=== PATIENT | male | born 1950 | race Caucasian/White ===

== ENCOUNTER 2018-12-01 12:09 | Observation (INO) | payer MEDICARE, OTHER ==
--- NOTE | 2018-12-01 12:30 | ED ---
General Adult HPI - General Chief complaint: Chest Pain Stated complaint: Chest Pain Time Seen by Provider: 12/01/18 12:19 Source: patient Mode of arrival: wheelchair Limitations: no limitations - History of Present Illness Initial comments: Patient is a pleasant 68-year-old male presenting to the emergency Department with complaints of chest discomfort. Onset of symptoms was prior to arrival. Patient did not feel well and had upset stomach and nausea. Following this patient felt fatigued in his extremities with some paresthesias. Patient felt s omewhat weak in general without any isolated area of weakness. No confusion. No speech problems or visual changes. Patient then had some chest discomfort that was described as an ache. Discomfort lasted just for a few minutes and has resolved. No associated dyspnea or diaphoresis. No history of similar symptoms previously. - Related Data Home Medications Medication Instructions Recorded Confirmed Aspirin 81 mg PO HS 02/07/14 12/01/18 Omeprazole [PriLOSEC] 20 mg PO HS 02/07/14 12/01/18 Finasteride [Proscar] 5 mg PO HS 12/22/15 12/01/18 Levothyroxine Sodium [Synthroid] 100 mcg PO HS 12/22/15 12/01/18 Montelukast [Singulair] 10 mg PO HS 12/22/15 12/01/18 amLODIPine [Norvasc] 5 mg PO HS 12/22/15 12/01/18 Atorvastatin [Lipitor] 20 mg PO HS 12/28/15 12/01/18 Loratadine 10 mg PO HS 08/10/16 12/01/18 Acetaminophen/Diphenhydramine 1 tab PO HS 12/01/18 12/01/18 [Tylenol PM 500-25mg] Celecoxib [CeleBREX] 200 mg PO DAILY 12/01/18 12/01/18 Fish Oil/Dha/Epa [Fish Oil 1,200 1 cap PO DAILY 12/01/18 12/01/18 mg Fish Oil] Magnesium Oxide [Mag-Ox] 400 mg PO DAILY 12/01/18 12/01/18 Polyethylene Glycol 3350 [Miralax] 17 gm PO DAILY PRN 12/01/18 12/01/18 Vitamin B Complex 1 cap PO DAILY 12/01/18 12/01/18 Wheat Dextrin [Benefiber] 1 pack PO BID 12/01/18 12/01/18 methylPREDNISolone [Medrol Dose See Taper PO DIRECTED 12/01/18 12/01/18 Pack] Allergies Allergy/AdvReac Type Severity Reaction Status Date / Time No Known Allergies Allergy Verified 12/01/18 12:38 Review of Systems ROS Statement: Those systems with pertinent positive or pertinent negative responses have been documented in the HPI. ROS Other: All systems not noted in ROS Statement are negative. Constitutional: Denies: fever Eyes: Denies: eye pain ENT: Denies: ear pain Respiratory: Denies: cough Cardiovascular: Reports: as per HPI, chest pain Endocrine: Denies: fatigue Gastrointestinal: Reports: nausea Genitourinary: Denies: dysuria Musculoskeletal: Denies: back pain Skin: Denies: rash Neurological: Reports: paresthesias. Denies: headache, confusion Past Medical History Past Medical History: GERD/Reflux, Hyperlipidemia, Hypertension, Prostate Disorder, Thyroid Disorder Additional Past Medical History / Comment(s): hiatal hernia, BENIGN POLYS REMOVED, SINUS AND SEASONAL ALLERGIES,ARTHRITIS,CONSTIPATION, BPH, VERTIGO, hypothyroid. History of Any Multi-Drug Resistant Organisms: None Reported Past Surgical History: Hernia Repair, Tonsillectomy Additional Past Surgical History / Comment(s): 12/28/15 Lap left incarcerated inguinal henia repair. Other surgeries: COLONOSCOPY/POLYPECTOMY-benign, circumcism, vasectomy. Past Anesthesia/Blood Transfusion Reactions: No Reported Reaction Past Psychological History: No Psychological Hx Reported Smoking Status: Never smoker Past Alcohol Use History: None Reported Past Drug Use History: None Reported - Past Family History Father Family Medical History: Myocardial Infarction ([place]) Additional Family Medical History / Comment(s): AT AGE 71 FROM [place] Mother Family Medical History: COPD Additional Family Medical History / Comment(s): EMPHYSEMA, IN HER SLEEP AT AGE 76 General Exam Limitations: no limitations General appearance: alert, in no apparent distress Head exam: Present: atraumatic, normocephalic Eye exam: Present: normal appearance, PERRL, EOMI. Absent: nystagmus ENT exam: Present: normal oropharynx Neck exam: Present: normal inspection Respiratory exam: Present: normal lung sounds bilaterally Cardiovascular Exam: Present: regular rate, normal rhythm Expanded Peripheral pulses: 2+: Radial (R), Radial (L), Posterior Tibialis (R), Posterior Tibialis (L) GI/Abdominal exam: Present: soft. Absent: distended, tenderness Extremities exam: Present: normal inspection. Absent: pedal edema, calf t enderness Neurological exam: Present: alert, oriented X3, CN II-XII intact. Absent: motor sensory deficit Expanded Neurological exam: Present: protecting the airway Patient oriented to: Present: person, place, time Speech: Present: fluid speech Cranial nerves: EOM's Intact: Normal, Facial Sensation: Normal Cerebellar function: Finger to Nose: Normal Sensory exam: Upper Extremity Light Touch: Normal, Lower Extremity Light Touch: Normal Motor strength exam: RUE: 5, LUE: 5, RLE: 5, LLE: 5 Eye Response: (4) open spontaneously Motor Response: (6) obeys commands Verbal Response: (5) oriented Psychiatric exam: Present: normal affect, normal mood Skin exam: Present: normal color Course Vital Signs 12/01/18 12/01/18 12/01/18 12:11 13:30 14:00 Temperature 98.5 F Pulse Rate 106 H 74 Respiratory 18 16 18 Rate Blood Pressure 146/94 128/93 133/98 O2 Sat by Pulse 98 95 Oximetry 12/01/18 12/01/18 14:30 15:00 Temperature Pulse Rate 82 95 Respiratory 18 17 Rate Blood Pressure 126/94 126/95 O2 Sat by Pulse 93 L 94 L Oximetry EKG Findings - EKG Comments: EKG Findings:: Normal sinus rhythm and 91. VA 164. QRS 110. QT 346. QTc 425. Left axis. Left anterior fascicular block. No acute ST change. Medical Decision Making - Medical Decision Making Patient reevaluated and resting comfortably in bed. Patient symptom-free at this point. Patient and family are updated on results and plan. Case was discussed in detail with Dr. Skinner, covering for Dr. Weaver, who will admit. - Lab Data Result diagrams: 12/01/18 12:45 12/01/18 12:45 Lab Results 12/01/18 12/01/18 12/01/18 Range/Units 12:45 12:45 12:45 WBC 7.3 (3.8-10.6) k/uL RBC 5.19 (4.30-5.90) m/uL Hgb 15.3 (13.0-17.5) gm/dL Hct 46.3 (39.0-53.0) % MCV 89.2 (80.0-100.0) fL MCH 29.4 (25.0-35.0) pg MCHC 32.9 (31.0-37.0) g/dL RDW 13.6 (11.5-15.5) % Plt Count 258 (150-450) k/uL Neutrophils % 67 % Lymphocytes % 20 % Monocytes % 9 % Eosinophils % 1 % Basophils % 0 % Neutrophils # 4.9 (1.3-7.7) k/uL Lymphocytes # 1.5 (1.0-4.8) k/uL Monocytes # 0.7 (0-1.0) k/uL Eosinophils # 0.1 (0-0.7) k/uL Basophils # 0.0 (0-0.2) k/uL PT 10.3 (9.0-12.0) sec INR 1.0 (<1.2) APTT 23.0 (22.0-30.0) sec Sodium 143 (137-145) mmol/L Potassium 4.6 (3.5-5.1) mmol/L Chloride 106 (98-107) mmol/L Carbon Dioxide 26 (22-30) mmol/L Anion Gap 11 mmol/L BUN 22 H (9-20) mg/dL Creatinine 0.92 (0.66-1.25) mg/dL Est GFR (CKD-EPI)AfAm >90 (>60 ml/min/1.73 sqM) Est GFR (CKD-EPI)NonAf 86 (>60 ml/min/1.73 sqM) Glucose 104 H (74-99) mg/dL Calcium 10.1 (8.4-10.2) mg/dL Magnesium 2.2 (1.6-2.3) mg/dL Total Bilirubin 0.6 (0.2-1.3) mg/dL AST 23 (17-59) U/L ALT 36 (21-72) U/L Alkaline Phosphatase 58 (38-126) U/L Troponin I (0.000-0.034) ng/mL Total Protein 7.5 (6.3-8.2) g/dL Albumin 4.6 (3.5-5.0) g/dL 12/01/18 Range/Units 12:45 WBC (3.8-10.6) k/uL RBC (4.30-5.90) m/uL Hgb (13.0-17.5) gm/dL Hct (39.0-53.0) % MCV (80.0-100.0) fL MCH (25.0-35.0) pg MCHC (31.0-37.0) g/dL RDW (11.5-15.5) % Plt Count (150-450) k/uL Neutrophils % % Lymphocytes % % Monocytes % % Eosinophils % % Basophils % % Neutrophils # (1.3-7.7) k/uL Lymphocytes # (1.0-4.8) k/uL Monocytes # (0-1.0) k/uL Eosinophils # (0-0.7) k/uL Basophils # (0-0.2) k/uL PT (9.0-12.0) sec INR (<1.2) APTT (22.0-30.0) sec Sodium (137-145) mmol/L Potassium (3.5-5.1) mmol/L Chloride (98-107) mmol/L Carbon Dioxide (22-30) mmol/L Anion Gap mmol/L BUN (9-20) mg/dL Creatinine (0.66-1.25) mg/dL Est GFR (CKD-EPI)AfAm (>60 ml/min/1.73 sqM) Est GFR (CKD-EPI)NonAf (>60 ml/min/1.73 sqM) Glucose (74-99) mg/dL Calcium (8.4-10.2) mg/dL Magnesium (1.6-2.3) mg/dL Total Bilirubin (0.2-1.3) mg/dL AST (17-59) U/L ALT (21-72) U/L Alkaline Phosphatase (38-126) U/L Troponin I <0.012 (0.000-0.034) ng/mL Total Protein (6.3-8.2) g/dL Albumin (3.5-5.0) g/dL - Radiology Data Radiology results: report reviewed (Computed tomography scan of the brain reveals no acute process.), image reviewed (Two-view chest x-ray shows no acute process.) Disposition Clinical Impression: Chest pain Disposition: ADMITTED IP TO THIS HOSP Is patient prescribed a controlled substance at d/c from ED?: No Referrals: Niurka Weaver DO [Primary Care Provider] - 1-2 days Decision Time: 15:06
--- NOTE | 2018-12-01 13:14 | CT ---
EXAMINATION TYPE: CT brain wo con DATE OF EXAM: 12/01/2018 COMPARISON: 08/10/2016 INDICATION: generalized weakness, elevated BP DLP: 1091.4 mGycm, Automated exposure control for dose reduction was used. CONTRAST: None CT of the brain is performed utilizing 3 mm thick sections through the posterior fossa and 3 mm thick sections through the remaining calvarium. Study is performed within 24 hours of arrival to the hosp ital. No abnormal hyperdensity is present to suggest an acute intracranial hemorrhage. No mass lesion is evident. No acute infarcts are evident. Ventricles and sulci are appropriate for the patient age. Paranasal sinuses and mastoid air cells within the [id number] are clear. IMPRESSIONS: 1. No acute intracranial process.
[2018-12-01 13:15] LABS: Prothrombin Time 10.3 sec (9.0-12.0)
--- NOTE | 2018-12-01 13:19 | XR ---
EXAMINATION TYPE: XR chest 2V DATE OF EXAM: 12/01/2018 COMPARISON: 08/10/2016 TECHNIQUE: PA and lateral views submitted. HISTORY: Chest pain FINDINGS: The lungs are clear and there is no pneumothorax, pleural effusion, or focal pneumonia. Hypertrophi c and degenerative change of the spine. Hyperinflation compatible with COPD. Biapical pleural thicken ing. No overt failure. IMPRESSION: 1. No acute process. Correlate for COPD.
[2018-12-01 13:20] LABS: ALT 36 U/L (21-72); AST 23 U/L (17-59); Albumin 4.6 g/dL (3.5-5.0); Alkaline Phosphatase 58 U/L (38-126); Anion Gap 11 mmol/L; Blood Urea Nitrogen 22 mg/dL (9-20); Calcium 10.1 mg/dL (8.4-10.2); Carbon Dioxide 26 mmol/L (22-30); Chloride 106 mmol/L (98-107); Glucose 104 mg/dL (74-99); Magnesium 2.2 mg/dL (1.6-2.3); Potassium 4.6 mmol/L (3.5-5.1); Sodium 143 mmol/L (137-145); Total Bilirubin 0.6 mg/dL (0.2-1.3); Total Protein 7.5 g/dL (6.3-8.2)
[2018-12-01 13:27] LABS: Basophils % (A) 0 %; Eosinophils # (A) 0.1 k/uL (0-0.7); Eosinophils % (A) 1 %; HCT 46.3 % (39.0-53.0); HGB 15.3 gm/dL (13.0-17.5); Lymphocytes # (A) 1.5 k/uL (1.0-4.8); Lymphocytes % (A) 20 %; MCH 29.4 pg (25.0-35.0); MCHC 32.9 g/dL (31.0-37.0); MCV 89.2 fL (80.0-100.0); Mean Platelet Volume 8.1; Monocytes # (A) 0.7 k/uL (0-1.0); Monocytes % (A) 9 %; Neutrophils # (A) 4.9 k/uL (1.3-7.7); Neutrophils % (A) 67 %; Platelet Count 258 k/uL (150-450); RBC 5.19 m/uL (4.30-5.90); RDW 13.6 % (11.5-15.5); WBC 7.3 k/uL (3.8-10.6)
[2018-12-01] MEDS ORDERED: ASPIRIN 81 MG PO STA (15:06)
[2018-12-01] MEDS ORDERED: NITROGLYCERIN SL TABS 0.4 MG TAB SUBLINGUAL PRN (15:06)
--- NOTE | 2018-12-01 15:53 | P.HPIM ---
History of Present Illness H&P Date: 12/01/18 This is a 68-year-old male patient of Dr. Weaver. Patient presented to the ER with complaints of chest pain. Patient also reports that is not feeling well and having increased fatigue. Patient also reports that his lower extremities both felt numb an overall generalized weakness. Patient denies any associated shortness breath. Patient has a known past medical history of hiatal hernia, GERD, hyperlipidemia, hypertension, prostate disorder and hypothyroidism. Patient denies any significant cardiac history for himself. Patient does report that father of heart attack. Patient denies nicotine dependence. Patient denies alcohol use. Patient also reports that he's had right shoulder and back discomfort for over a week in which she's currently on a Medrol Dosepak. EKG completed showing normal sinus rhythm, left anterior vascular block. Initial troponin negative. Head CT completed showing no acute intracranial process. Chest x-ray showing no acute process. Correlate for COPD. At this time patient is resting comfortably in bed. Patient denies any chest pain or shortness of breath. Patient numbness to lower extremities have resolved. Patient denies any neuro symptoms. Speech is clear. Patient with are symmetric. At this time serial troponins have been ordered. Cardiology services have been consulted Review of Systems Please refer to HPI otherwise unremarkable Past Medical History Past Medical History: GERD/Reflux, Hyperlipidemia, Hypertension, Prostate Disorder, Thyroid Disorder Additional Past Medical History / Comment(s): hiatal hernia, BENIGN POLYS REMOVED, SINUS AND SEASONAL ALLERGIES,ARTHRITIS,CONSTIPATION, BPH, VERTIGO, hypothyroid. History of Any Multi-Drug Resistant Organisms: None Reported Past Surgical History: Hernia Repair, Tonsillectomy Additional Past Surgical History / Comment(s): 12/28/15 Lap left incarcerated inguinal henia repair. Other surgeries: COLONOSCOPY/POLYPECTOMY-benign, circumcism, vasectomy. Past Anesthesia/Blood Transfusion Reactions: No Reported Reaction Past Psychological History: No Psychological Hx Reported Smoking Status: Never smoker Past Alcohol Use History: None Reported Past Drug Use History: None Reported - Past Family History Father Family Medical History: Myocardial Infarction ([place]) Additional Family Medical History / Comment(s): AT AGE 71 FROM [place] Mother Family Medical History: COPD Additional Family Medical History / Comment(s): EMPHYSEMA, IN HER SLEEP AT AGE 76 Medications and Allergies Home Medications Medication Instructions Recorded Confirmed Type Aspirin 81 mg PO HS 02/07/14 12/01/18 History Omeprazole [PriLOSEC] 20 mg PO HS 02/07/14 12/01/18 History Finasteride [Proscar] 5 mg PO HS 12/22/15 12/01/18 History Levothyroxine Sodium [Synthroid] 100 mcg PO HS 12/22/15 12/01/18 History Montelukast [Singulair] 10 mg PO HS 12/22/15 12/01/18 History amLODIPine [Norvasc] 5 mg PO HS 12/22/15 12/01/18 History Atorvastatin [Lipitor] 20 mg PO HS 12/28/15 12/01/18 History Loratadine 10 mg PO HS 08/10/16 12/01/18 History Acetaminophen/Diphenhydramine 1 tab PO HS 12/01/18 12/01/18 History [Tylenol PM 500-25mg] Celecoxib [CeleBREX] 200 mg PO DAILY 12/01/18 12/01/18 History Fish Oil/Dha/Epa [Fish Oil 1,200 1 cap PO DAILY 12/01/18 12/01/18 History mg Fish Oil] Magnesium Oxide [Mag-Ox] 400 mg PO DAILY 12/01/18 12/01/18 History Polyethylene Glycol 3350 [Miralax] 17 gm PO DAILY PRN 12/01/18 12/01/18 History Vitamin B Complex 1 cap PO DAILY 12/01/18 12/01/18 History Wheat Dextrin [Benefiber] 1 pack PO BID 12/01/18 12/01/18 History methylPREDNISolone [Medrol Dose See Taper PO DIRECTED 12/01/18 12/01/18 History Pack] Allergies Allergy/AdvReac Type Severity Reaction Status Date / Time No Known Allergies Allergy Verified 12/01/18 12:38 Physical Exam Vitals: Vital Signs Temp Pulse Resp BP Pulse Ox 12/01/18 15:00 95 17 126/95 94 L 12/01/18 14:30 82 18 126/94 93 L 12/01/18 14:00 18 133/98 12/01/18 13:30 74 16 128/93 95 12/01/18 12:11 98.5 F 106 H 18 146/94 98 Intake and Output 12/01/18 12/01/18 12/01/18 06:59 14:59 22:59 Other: Weight 95.254 kg Head normocephalic Neck supple Lungs clear to auscultation bilaterally no wheezing or crackles Heart regular rate and rhythm S1-S2, no rub or gallop Abdomen is soft nontender nondistended positive bowel sounds no hepatosplenomegaly Extremities no edema Neuro alert and orientated to 3 Results CBC & Chem 7: 12/01/18 12:45 12/01/18 12:45 Labs: Abnormal Lab Results - Last 24 Hours (Table) 12/01/18 Range/Units 12:45 BUN 22 H (9-20) mg/dL Glucose 104 H (74-99) mg/dL Assessment and Plan Assessment: 1. Chest pain with lower extremity weakness. Initial troponin negative. Head CT completed showing no acute intracranial process. Chest x-ray completed showing no acute process. Correlate for COPD. EKG completed showing normal sinus rhythm. Left anterior vascular block. Cardiology services have been consulted. Seriel Troponins ordered 2. History of GERD 3. History of hyperlipidemia 4. Essential hypertension 5. Prostate disorder 6. Hypothyroidism 7. Recent shoulder injury. Patient reports that he's was on Medrol Dosepak at home for this pain her PCP DVT prophylaxis Lovenox. GI prophylaxis Protonix Time with Patient: Greater than 30 (Greater than 60% of the total time spent in counseling and coordination of care. I performed an examination of the patient and discussed their management with the Nurse Practitioner. I have reviewed the Nurse Practitioner's notes and agree with the documented findings and plan of care)
[2018-12-01] MEDS: NITROGLYCERIN OINT 1 INCH/GM PACKET TOPICAL SCH (19:59)
[2018-12-01] MEDS ORDERED: ACETAMINOPHEN TAB 500 MG TAB PO SCH (21:00)
[2018-12-01] MEDS ORDERED: diphenhydrAMINE 25 MG CAP PO SCH (21:00)
[2018-12-01] MEDS ORDERED: LEVOTHYROXINE 100 MCG TAB PO SCH (21:00)
[2018-12-01] MEDS ORDERED: MONTELUKAST 10 MG TAB PO SCH (21:00)
[2018-12-01] MEDS ORDERED: ATORVASTATIN 20 MG TAB PO SCH (21:00)
[2018-12-01] MEDS ORDERED: PANTOPRAZOLE 40 MG TABLET PO SCH (21:00)
[2018-12-01] MEDS ORDERED: amLODIPine 5 MG TAB PO SCH (21:00)
[2018-12-01] MEDS ORDERED: LORATADINE 10 MG TAB PO SCH (21:00)
[2018-12-01] MEDS ORDERED: FINASTERIDE 5 MG TAB PO SCH (21:00)
[2018-12-01] MEDS ORDERED: NON-FORMULARY DRUG (Acetaminophen/Diphenhydramine [Tylenol Pm 500-25mg] 1 TAB) PO SCH (21:00)
[2018-12-02] MEDS: NITROGLYCERIN OINT 1 INCH/GM PACKET TOPICAL SCH ×3 (02:01→12:37)
[2018-12-02] MEDS ORDERED: PANTOPRAZOLE 40 MG TABLET PO SCH (07:30)
[2018-12-02 08:06] LABS: Basophils # (A) 0.1 k/uL (0-0.2); Basophils % (A) 1 %; Eosinophils # (A) 0.2 k/uL (0-0.7); Eosinophils % (A) 2 %; HCT 47.3 % (39.0-53.0); HGB 15.7 gm/dL (13.0-17.5); Lymphocytes # (A) 2.7 k/uL (1.0-4.8); Lymphocytes % (A) 39 %; MCH 29.8 pg (25.0-35.0); MCHC 33.2 g/dL (31.0-37.0); MCV 89.7 fL (80.0-100.0); Monocytes # (A) 0.6 k/uL (0-1.0); Monocytes % (A) 9 %; Neutrophils # (A) 3.2 k/uL (1.3-7.7); Neutrophils % (A) 46 %; Platelet Count 244 k/uL (150-450); RBC 5.28 m/uL (4.30-5.90); RDW 12.8 % (11.5-15.5); WBC 6.9 k/uL (3.8-10.6)
[2018-12-02 08:31] LABS: ALT 45 U/L (21-72); AST 24 U/L (17-59); Albumin 4.4 g/dL (3.5-5.0); Alkaline Phosphatase 58 U/L (38-126); Anion Gap 9 mmol/L; Blood Urea Nitrogen 17 mg/dL (9-20); Calcium 9.4 mg/dL (8.4-10.2); Carbon Dioxide 28 mmol/L (22-30); Chloride 107 mmol/L (98-107); Cholesterol 120 mg/dL (<200); Glucose 95 mg/dL (74-99); HDL Cholesterol 43 mg/dL (40-60); LDL Cholesterol,Calculated 51 mg/dL (0-99); Potassium 3.9 mmol/L (3.5-5.1); Sodium 144 mmol/L (137-145); Total Bilirubin 0.7 mg/dL (0.2-1.3); Triglycerides 130 mg/dL (<150)
[2018-12-02] MEDS ORDERED: ASPIRIN 325 MG TAB PO SCH (09:00)
[2018-12-02] MEDS ORDERED: ENOXAPARIN 40 MG/0.4 ML SYRINGE SQ SCH (09:00)
[2018-12-02 09:01] VITALS: RESP 18
--- NOTE | 2018-12-02 11:08 | P.CRDCN ---
History of Present Illness History of present illness: This is a pleasant 68-year-old male past medical history significant for dyslipidemia, hypertension, benign prostatic hypertrophy, gastroesophageal reflux disease and hypothyroidism. He denies history of coronary artery disease or diabetes mellitus. He follows with Dr. Gardiner as an outpatient. We have been asked to see him in consultation secondary to chest discomfort. He states yesterday while sitting down drinking some paperwork at his table he started feeling acutely lightheaded and weak. He stood up to walk around and see if his symptoms would subside however he felt very weak and achy in both of his legs and arms. He denies having any symptoms of chest discomfort, shortness of breath, palpitations, nausea, vomiting or diaphoresis. Upon arrival to the emergency department his EKG was obtained and revealed sinus mechanism with left anterior fascicular block. He states his symptoms ultimately subsided on their own and he feels back to baseline this morning. No further symptoms of lightheaded or weakness. He recently underwent stress testing with his primary care physician in March 2018. A Persantine stress test was negative for reversible cardiac ischemia. Chest x-ray is negative for an acute cardiopulmonary process. Laboratory data reviewed, WBC 6.9, hemoglobin 15.7, platelets 244, sodium 144, potassium 3.9, creatinine 0.96, magnesium 2.2, cardiac enzymes negative 3, LDL 51 and HDL 43. Current cardiac medications include aspirin 81 mg daily, atorvastatin 20 mg daily, amlodipine 5 mg daily. At the time of my exam: CONSTITUTIONAL: Denies fever. Denies chills. EYES: Denies blurred vision. Denies vision changes. Denies eye pain. EARS, NOSE, MOUTH & THROAT: Denies headache. Denies sore throat. Denies ear pain. CARDIOVASCULAR: Denies chest pain. Denies shortness of breath. Denies orthopnea. Denies PND. Denies palpitations. RESPIRATORY: Denies cough. GASTROINTESTINAL: Denies abdominal pain. Denies diarrhea. Denies constipation. Denies nausea. Denies vomiting. MUSCULOSKELETAL: Denies myalgias. INTEGUMENTARY: Denies pruitis. Denies rash. NEUROLOGIC: Denies numbness. Denies tingling. Denies weakness. PSYCHIATRIC: Denies anxiety. Denies depression. ENDOCRINE: Denies fatigue. Denies weight change. Denies polydipsia. Denies polyurina. GENITOURINARY: Denies burning, hematuria or urgency with micturation. HEMATOLOGIC: Denies history of anemia. Denies bleeding. Blood pressure 142/84 heart rate 88 afebrile maintaining oxygen saturation on room air GENERAL: This is a 68-year-old male in no apparent distress at the time of my examination. HEENT: Head is atraumatic, normocephalic. Pupils are equal, round. Sclerae anicteric. Conjunctivae are clear. Mucous membranes of the mouth are moist. Neck is supple. There is no jugular venous distention. No carotid bruit is heard. LUNGS: Clear to auscultation no wheezes, rales or rhonchi. No chest wall tenderness is noted on palpation or with deep breathing. HEART: Regular rate and rhythm without murmurs, rubs or gallops. S1 and S2 heard. ABDOMEN: Soft, nontender. Bowel sounds are heard. No organomegaly noted. EXTREMITIES: No evidence of peripheral edema and no calf tenderness noted. VASCULAR: Radial and dorsalis pedis pulses palpated, no evidence of clubbing. NEUROLOGIC: Patient is awake, alert and oriented x3. ASSESSMENT Generalized weakness associated with lightheaded feeling. An acute coronary event has been ruled out with no EKG evidence of ischemia and negative cardiac enzymes. Negative stress test performed in March 2018. Hypertension Dyslipidemia Gastroesophageal reflux disease PLAN An acute coronary event has been ruled out with no EKG evidence of acute ischemia and negative cardiac enzymes. Recent stress test performed in March 2018 has been requested from his primary care office and reviewed. No evidence of reversible ischemia at that time. Obtain 2-D echocardiogram and Doppler study to assess cardiac structure and function. Increase activity and ambulation in the cardona and assess for further symptoms. If he remains asymptomatic he is stable from a cardiac perspective. Follow-up with Dr. Gardiner upon discharge. Thank you kindly for this consultation. Nurse Practitioner note has been reviewed, I agree with a documented findings and plan of care. Patient was seen and examined. Past Medical History Past Medical History: GERD/Reflux, Hyperlipidemia, Hypertension, Prostate Disorder, Thyroid Disorder Additional Past Medical History / Comment(s): hernia, BENIGN POLYS REMOVED, SINUS AND SEASONAL ALLERGIES,ARTHRITIS,CONSTIPATION, BPH, VERTIGO, hypothyroid. History of Any Multi-Drug Resistant Organisms: None Reported Past Surgical History: Hernia Repair, Tonsillectomy Additional Past Surgical History / Comment(s): 12/28/15 Lap left incarcerated inguinal henia repair. Other surgeries: COLONOSCOPY/POLYPECTOMY-benign, circumcism, vasectomy. Past Anesthesia/Blood Transfusion Reactions: No Reported Reaction Past Psychological History: No Psychological Hx Reported Additional Psychological History / Comment(s): PT LIVES AT HOME WITH HIS ,IS INDEPENDANT. 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 Smoking Status: Never smoker Past Alcohol Use History: None Reported Past Drug Use History: None Reported - Past Family History Father Family Medical History: Myocardial Infarction ([place]) Additional Family Medical History / Comment(s): AT AGE 71 FROM [place] Mother Family Medical History: COPD Additional Family Medical History / Comment(s): EMPHYSEMA, IN HER SLEEP AT AGE 76 Medications and Allergies Home Medications Medication Instructions Recorded Confirmed Type Aspirin 81 mg PO HS 02/07/14 12/01/18 History Omeprazole [PriLOSEC] 20 mg PO HS 02/07/14 12/01/18 History Finasteride [Proscar] 5 mg PO HS 12/22/15 12/01/18 History Levothyroxine Sodium [Synthroid] 100 mcg PO HS 12/22/15 12/01/18 History Montelukast [Singulair] 10 mg PO HS 12/22/15 12/01/18 History amLODIPine [Norvasc] 5 mg PO HS 12/22/15 12/01/18 History Atorvastatin [Lipitor] 20 mg PO HS 12/28/15 12/01/18 History Loratadine 10 mg PO HS 08/10/16 12/01/18 History Acetaminophen/Diphenhydramine 1 tab PO HS 12/01/18 12/01/18 History [Tylenol PM 500-25mg] Celecoxib [CeleBREX] 200 mg PO DAILY 12/01/18 12/01/18 History Fish Oil/Dha/Epa [Fish Oil 1,200 1 cap PO DAILY 12/01/18 12/01/18 History mg Fish Oil] Magnesium Oxide [Mag-Ox] 400 mg PO DAILY 12/01/18 12/01/18 History Polyethylene Glycol 3350 [Miralax] 17 gm PO DAILY PRN 12/01/18 12/01/18 History Vitamin B Complex 1 cap PO DAILY 12/01/18 12/01/18 History Wheat Dextrin [Benefiber] 1 pack PO BID 12/01/18 12/01/18 History methylPREDNISolone [Medrol Dose See Taper PO DIRECTED 12/01/18 12/01/18 History Pack] Allergies Allergy/AdvReac Type Severity Reaction Status Date / Time No Known Allergies Allergy Verified 12/01/18 12:38 Physical Exam Vitals: Vital Signs Temp Pulse Pulse Resp BP BP Pulse Ox 12/02/18 04:00 98.6 F 74 16 133/76 96 12/02/18 03:26 16 12/02/18 00:00 16 12/01/18 20:00 98.6 F 73 16 149/80 95 12/01/18 16:25 98.7 F 84 18 160/93 97 12/01/18 15:30 75 16 134/93 93 L 12/01/18 15:00 95 17 126/95 94 L 12/01/18 14:30 82 18 126/94 93 L 12/01/18 14:00 18 133/98 12/01/18 13:30 74 16 128/93 95 12/01/18 12:11 98.5 F 106 H 18 146/94 98 Intake and Output 12/01/18 12/02/18 12/02/18 22:59 06:59 14:59 Intake Total 240 Balance 240 Intake: Oral 240 Other: # Voids 1 Results 12/02/18 07:46 12/02/18 07:46 Cardiac Enzymes 12/01/18 12/01/18 12/01/18 Range/Units 12:45 12:45 18:34 AST 23 (17-59) U/L Troponin I <0.012 <0.012 (0.000-0.034) ng/mL 12/02/18 12/02/18 Range/Units 00:50 07:46 AST 24 (17-59) U/L Troponin I <0.012 (0.000-0.034) ng/mL Coagulation 12/01/18 Range/Units 12:45 PT 10.3 (9.0-12.0) sec APTT 23.0 (22.0-30.0) sec Lipids 12/02/18 Range/Units 07:46 Triglycerides 130 (<150) mg/dL Cholesterol 120 (<200) mg/dL HDL Cholesterol 43 (40-60) mg/dL CBC 12/01/18 12/02/18 Range/Units 12:45 07:46 WBC 7.3 6.9 (3.8-10.6) k/uL RBC 5.19 5.28 (4.30-5.90) m/uL Hgb 15.3 15.7 (13.0-17.5) gm/dL Hct 46.3 47.3 (39.0-53.0) % Plt Count 258 244 (150-450) k/uL Comprehensive Metabolic Panel 12/01/18 12/02/18 Range/Units 12:45 07:46 Sodium 143 144 (137-145) mmol/L Potassium 4.6 3.9 (3.5-5.1) mmol/L Chloride 106 107 (98-107) mmol/L Carbon Dioxide 26 28 (22-30) mmol/L BUN 22 H 17 (9-20) mg/dL Creatinine 0.92 0.96 (0.66-1.25) mg/dL Glucose 104 H 95 (74-99) mg/dL Calcium 10.1 9.4 (8.4-10.2) mg/dL AST 23 24 (17-59) U/L ALT 36 45 (21-72) U/L Alkaline Phosphatase 58 58 (38-126) U/L Total Protein 7.5 7.0 (6.3-8.2) g/dL Albumin 4.6 4.4 (3.5-5.0) g/dL Current Medications Generic Name Dose Route Start Last Admin Trade Name Freq PRN Reason Stop Dose Admin Acetaminophen 500 mg 12/01/18 21:00 12/01/18 21:09 Tylenol Tab PO 500 mg HS REGINA Administration Amlodipine Besylate 5 mg 12/01/18 21:00 12/01/18 21:09 Norvasc PO 5 mg HS REGINA Administration Aspirin 325 mg 12/02/18 09:00 Aspirin PO DAILY [facility] Atorvastatin Calcium 20 mg 12/01/18 21:00 12/01/18 21:09 Lipitor PO 20 mg HS REGINA Administration Diphenhydramine HCl 25 mg 12/01/18 21:00 12/01/18 21:09 Benadryl PO 25 mg HS REGINA Administration Enoxaparin Sodium 40 mg 12/02/18 09:00 Lovenox SQ DAILY REGINA Finasteride 5 mg 12/01/18 21:00 12/01/18 21:12 Proscar PO 5 mg HS REGINA Administration Levothyroxine Sodium 100 mcg 12/01/18 21:00 12/01/18 21:09 Synthroid PO 100 mcg HS REGINA Administration Loratadine 10 mg 12/01/18 21:00 12/01/18 21:09 Claritin PO 10 mg HS REGINA Administration Magnesium Oxide 400 mg 12/02/18 12:00 Mag-Ox PO 1200 REGINA Montelukast Sodium 10 mg 12/01/18 21:00 12/01/18 21:12 Singulair PO 10 mg HS REGINA Administration Nitroglycerin 1 inch 12/01/18 18:00 12/02/18 05:53 Nitro-Bid Oint TOPICAL Not Given Q6HR [facility] Nitroglycerin 0.4 mg 12/01/18 15:06 Nitrostat SUBLINGUAL Q5M PRN Chest Pain Pantoprazole Sodium 40 mg 12/01/18 21:00 12/01/18 21:09 Protonix PO 40 mg HS REGINA Administration Sodium Chloride 10 ml 12/01/18 21:00 12/01/18 21:15 Saline Flush IV 10 ml BID REGINA Administration Intake and Output 12/01/18 12/02/18 12/02/18 22:59 06:59 14:59 Intake Total 240 Balance 240 Intake: Oral 240 Other: # Voids 1 12/02/18 07:46 12/02/18 07:46
--- NOTE | 2018-12-02 11:49 | ECHOF ---
Referral Reason:dizziness MEASUREMENTS -------- HEIGHT: 180.3 cm WEIGHT: 95.3 kg BP: 142/84 RVIDd: 3.6 cm (< 3.3) IVSd: 1.6 cm (0.6 - 1.1) LVIDd: 3.8 cm (3.9 - 5.3) LVPWd: 1.3 cm (0.6 - 1.1) IVSs: 2.1 cm LVIDs: 3.0 cm LVPWs: 1.9 cm LA Diam: 3.1 cm (2.7 - 3.8) LAESV Index (A-L): 13.93 ml/m Ao Diam: 3.7 cm (2.0 - 3.7) AV Cusp: 2.3 cm (1.5 - 2.6) MV EXCURSION: 13.644 mm (> 18.000) MV EF SLOPE: 41 mm/s (70 - 150) EPSS: 1.0 cm MV E Francisco: 0.52 m/s MV DecT: 224 ms MV A Francisco: 0.91 m/s MV E/A Ratio: 0.57 RAP: 5.00 mmHg RVSP: 23.73 mmHg FINDINGS -------- Sinus rhythm. This was a technically adequate study. The left ventricular size is normal. There is moderate concentric left ventricular hypertrophy. O verall left ventricular systolic function is normal with, an EF between 60 - 65 %. The right ventricle is mildly enlarged. Normal LA size by volume 22+/-6 ml/m2. The right atrium is normal in size. Aortic valve is trileaflet and is mildly thickened. The mitral valve leaflets are mildly thickened. Mild mitral annular calcification present. There is trace mitral regurgitation. Mild tricuspid regurgitation present. Right ventricular systolic pressure is normal at < 35 mmHg. Trace/mild (physiologic) pulmonic regurgitation. The aortic root size is normal. Normal inferior vena cava with normal inspiratory collapse consistent with estimated right atrial pre ssure of 5 mmHg. There is no pericardial effusion. CONCLUSIONS -------- 1. Sinus rhythm. 2. This was a technically adequate study. 3. The left ventricular size is normal. 4. There is moderate concentric left ventricular hypertrophy. 5. Overall left ventricular systolic function is normal with, an EF between 60 - 65 %. 6. The right ventricle is mildly enlarged. 7. Normal LA size by volume 22+/-6 ml/m2. 8. The right atrium is normal in size. 9. Aortic valve is trileaflet and is mildly thickened. 10. The mitral valve leaflets are mildly thickened. 11. Mild mitral annular calcification present. 12. There is trace mitral regurgitation. 13. Mild tricuspid regurgitation present. 14. Right ventricular systolic pressure is normal at < 35 mmHg. 15. Trace/mild (physiologic) pulmonic regurgitation. 16. The aortic root size is normal. 17. Normal inferior vena cava with normal inspiratory collapse consistent with estimated right atrial pressure of 5 mmHg. 18. There is no pericardial effusion. RUG DYER: Ting Kohli RDCS
[2018-12-02] MEDS ORDERED: MAGNESIUM OXIDE 400 MG TAB PO SCH (12:00)
[2018-12-02 12:47] VITALS: BP 119/83; PULSE 118; TEMP 98.7
--- NOTE | 2018-12-02 14:18 | P.DS ---
Providers Date of admission: 12/01/18 15:07 Expected date of discharge: 12/02/18 Attending physician: Rafael Skinner Consults: 12/01/18 15:07 Consult Physician Urgent Consulting Provider: Sidra Oneil Consult Reason/Comments: cp Do you want consulting provider notified?: Yes Primary care physician: Niurka Weaver Hospital Course: Discharge diagnosis 1. Chest pain with lower extremity weakness. Initial troponin negative. Head CT completed showing no acute intracranial process. Chest x-ray completed showing no acute process. Correlate for COPD. EKG completed showing normal sinus rhythm. Left anterior vascular block. Troponins negative 3. Patient did have stress test completed. Discussed case with cardiology GENERATION TECHNOLOGIST. Stress test negative. Patient has been cleared for discharge from cardiology standpoint. Recommend holding Lipitor upon discharge due to increased muscle aches. Patient follow-up with PCP for further management. 2. History of GERD 3. History of hyperlipidemia 4. Essential hypertension 5. Prostate disorder 6. Hypothyroidism 7. Recent shoulder injury. Patient reports that he's was on Medrol Dosepak at home for this pain his PCP Hospital course This is a 68-year-old male patient of Dr. Weaver. Patient presented to the ER with complaints of chest pain. Patient also reports that is not feeling well and having increased fatigue. Patient also reports that his lower extremities both felt numb an overall generalized weakness. Patient denies any associated shortness breath. Patient has a known past medical history of hiatal hernia, GERD, hyperlipidemia, hypertension, prostate disorder and hypothyroidism. Patient denies any significant cardiac history for himself. Patient does report that father of heart attack. Patient denies nicotine dependence. Patient denies alcohol use. Patient also reports that he's had right shoulder and back discomfort for over a week in which she's currently on a Medrol Dosepak. EKG completed showing normal sinus rhythm, left anterior vascular block. Initial troponin negative. Head CT completed showing no acute intracranial process. Chest x-ray showing no acute process. Correlate for COPD. At this time patient is resting comfortably in bed. Patient denies any chest pain or shortness of breath. Patient numbness to lower extremities have resolved. Patient denies any neuro symptoms. Speech is clear. Patient with are symmetric. At this time serial troponins have been ordered. Cardiology services have been consulted On 12/02/2018 alert and oriented 3. Patient has had no chest pain or shortness breath throughout night. Patient did have stress test completed. Discussed with cardiology GENERATION TECHNOLOGIST. Patient has been cleared for discharge. At this time patient denies chest pain or shortness breath. Patient denies nausea vomiting or diarrhea. Patient denies any urinary burning or frequency. Patient's Lipitor recommended to be held upon discharge due to patient's presentation with generalized muscle aches. Patient to follow-up with PCP for further management. I performed an examination of the patient and discussed their management with the Nurse Practitioner. I have reviewed the Nurse Practitioner's notes and agree with the documented findings and plan of care Patient Condition at Discharge: Stable Plan - Discharge Summary New Discharge Prescriptions: Continue Omeprazole [PriLOSEC] 20 mg PO HS Aspirin 81 mg PO HS Montelukast [Singulair] 10 mg PO HS Finasteride [Proscar] 5 mg PO HS amLODIPine [Norvasc] 5 mg PO HS Levothyroxine Sodium [Synthroid] 100 mcg PO HS Loratadine 10 mg PO HS Acetaminophen/Diphenhydramine [Tylenol PM 500-25mg] 1 tab PO HS Celecoxib [CeleBREX] 200 mg PO DAILY Fish Oil/Dha/Epa [Fish Oil 1,200 mg Fish Oil] 1 cap PO DAILY Magnesium Oxide [Mag-Ox] 400 mg PO DAILY methylPREDNISolone [Medrol Dose Pack] See Taper PO DIRECTED Polyethylene Glycol 3350 [Miralax] 17 gm PO DAILY PRN PRN Reason: Constipation Vitamin B Complex 1 cap PO DAILY Wheat Dextrin [Benefiber] 1 pack PO BID Discontinued Atorvastatin [Lipitor] 20 mg PO HS Discharge Medication List Aspirin 81 mg PO HS 02/07/14 [History] Omeprazole [PriLOSEC] 20 mg PO HS 02/07/14 [History] Finasteride [Proscar] 5 mg PO HS 12/22/15 [History] Levothyroxine Sodium [Synthroid] 100 mcg PO HS 12/22/15 [History] Montelukast [Singulair] 10 mg PO HS 12/22/15 [History] amLODIPine [Norvasc] 5 mg PO HS 12/22/15 [History] Loratadine 10 mg PO HS 08/10/16 [History] Acetaminophen/Diphenhydramine [Tylenol PM 500-25mg] 1 tab PO HS 12/01/18 [History] Celecoxib [CeleBREX] 200 mg PO DAILY 12/01/18 [History] Fish Oil/Dha/Epa [Fish Oil 1,200 mg Fish Oil] 1 cap PO DAILY 12/01/18 [History] Magnesium Oxide [Mag-Ox] 400 mg PO DAILY 12/01/18 [History] Polyethylene Glycol 3350 [Miralax] 17 gm PO DAILY PRN 12/01/18 [History] Vitamin B Complex 1 cap PO DAILY 12/01/18 [History] Wheat Dextrin [Benefiber] 1 pack PO BID 12/01/18 [History] methylPREDNISolone [Medrol Dose Pack] See Taper PO DIRECTED 12/01/18 [ History] Follow up Appointment(s)/Referral(s): Niurka Weaver DO [Primary Care Provider] - 1-2 days Activity/Diet/Wound Care/Special Instructions: Activity as tolerated Diet heart healthy
--- NOTE | 2018-12-04 13:10 | ECHOS ---
STRESS ECHOCARDIOGRAM INDICATIONS: Chest pain. MEDICATIONS: BASELINE HEART RATE: 85 BASELINE BLOOD PRESSURE: 135/90 MAXIMUM HEART RATE: 151 MAXIMUM BLOOD PRESSURE: 187/91 85% MPHR: 130 100% MPHR: 153 METS: 10.3 MAXIMUM STAGE REACHED: III TOTAL EXERCISE TIME: 9 minutes CLINICAL INFORMATION: Patient was exercised for a total period of 9 minutes. Peak heart rate of 151 was achieved. Maximum blood pressure of 187/91 mmHg was noted. Resting EKG shows normal sinus rhythm with normal HI interval and QRS duration and normal ST-T waves. No ST- segment depression suggestive of ischemia was noted. No dysrhythmias were noted. Baseline echocardiographic images reveal normal left ventricular chamber size with normal left ventricular systolic function. In the immediate postexercise period, normal increase in the wall thickness and contractility is noted. FINAL IMPRESSION: 1. This stress echocardiographic study is negative for stress-induced ischemia. 2. EKG portion of the stress test is not suggestive of ischemia. 3. Patient's exercise tolerance is excellent. MMODL / IJN: [id number] /
== END 2018-12-02 14:50 | disposition home or self-care (01) ==
LOC: EC 12:09 → 1SOBS 15:07
PROVIDERS: ADMIT Internal Medicine; ATTEND Internal Medicine
DX: R07.89 Other chest pain (principal); R53.1 Weakness; I44.4 Left anterior fascicular block; R11.0 Nausea; R20.2 Paresthesia of skin; R53.83 Other fatigue; N40.0 Benign prostatic hyperplasia without lower urinary tract symptoms; K59.00 Constipation, unspecified; J30.2 Other seasonal allergic rhinitis; M79.10 Myalgia, unspecified site; K21.9 Gastro-esophageal reflux disease without esophagitis; I10 Essential (primary) hypertension; E78.5 Hyperlipidemia, unspecified; E03.9 Hypothyroidism, unspecified; M19.90 Unspecified osteoarthritis, unspecified site; K30 Functional dyspepsia; K44.9 Diaphragmatic hernia without obstruction or gangrene; M54.9 Dorsalgia, unspecified; S49.91XA Unspecified injury of right shoulder and upper arm, initial encounter; Z79.82 Long term (current) use of aspirin; Z79.890 Hormone replacement therapy; Z79.899 Other long term (current) drug therapy; Z79.52 Long term (current) use of systemic steroids; Z86.010 Personal history of colon polyps; Z98.52 Vasectomy status; Z82.49 Family history of ischemic heart disease and other diseases of the circulatory system; Z82.5 Family history of asthma and other chronic lower respiratory diseases; X58.XXXA Exposure to other specified factors, initial encounter
CPT/HCPCS: 93005 ×2; 99285; 36415; 93306; 80061; 80053 ×2; 83735; 84484 ×2; 85025 ×2; 85610; 85730; 71046; 70450; G0378 ×2; C8930; S0138; Q9950; 93351

== ENCOUNTER 2019-08-17 06:44 | Day surgery (SDC) | payer MEDICARE, OTHER ==
[2019-08-13 11:47] VITALS: BMI 27.8
[~2019-08-17 06:44] MED LIST: LACTATED RINGERS 1,000 ML IV SCH; LIDOCAINE 1% 20 ML VIAL (10MG/ML) FOR IV START INTRADERMA PRN
[2019-08-17 07:27] VITALS: TEMP 97.4
[2019-08-17] MEDS ORDERED: GLYCOPYRROLATE 0.2 MG/ML 2 ML VIAL ONE (07:53)
[2019-08-17] MEDS ORDERED: PROPOFOL 10 MG/ML 20 ML VIAL IV ONE (07:53)
[2019-08-17] MEDS ORDERED: PHENYLEPHRINE-0.9% NACL SYG 1 MG/10 ML SYRINGE ONE (07:53)
--- NOTE | 2019-08-17 07:54 | P.GSHP ---
History of Present Illness H&P Date: 08/17/19 Chief Complaint: Screening colonoscopy This a 61-year-old male who presents today for screening colonoscopy. Patient denies any significant GI complaints. Past Medical History Past Medical History: GERD/Reflux, Hyperlipidemia, Hypertension, Osteoarthritis (OA), Prostate Disorder, Thyroid Disorder Additional Past Medical History / Comment(s): Told borderline DM in past. Sinus and seasonal allergies, Chronic constipation, benign colon polyps, BPH, hx sl vertigo x1, hypothyroid. History of Any Multi-Drug Resistant Organisms: None Reported Past Surgical History: Hernia Repair, Tonsillectomy Additional Past Surgical History / Comment(s): 12/28/15 Lap left incarcerated inguinal henia repair. Other surgeries: COLONOSCOPY/POLYPECTOMY-benign, circumcision, vasectomy. Past Anesthesia/Blood Transfusion Reactions: No Reported Reaction Smoking Status: Never smoker - Past Family History Father Family Medical History: Myocardial Infarction ([place]) Additional Family Medical History / Comment(s): AT AGE 71 FROM [place] Mother Family Medical History: COPD Additional Family Medical History / Comment(s): EMPHYSEMA, IN HER SLEEP AT AGE 76 Medications and Allergies Home Medications Medication Instructions Recorded Confirmed Type Aspirin 81 mg PO HS 02/07/14 08/13/19 History Omeprazole [PriLOSEC] 20 mg PO BID 02/07/14 08/17/19 History Finasteride [Proscar] 5 mg PO HS 12/22/15 08/17/19 History Levothyroxine Sodium [Synthroid] 100 mcg PO HS 12/22/15 08/17/19 History amLODIPine [Norvasc] 5 mg PO HS 12/22/15 08/17/19 History Acetaminophen/Diphenhydramine 1 tab PO HS 12/01/18 08/17/19 History [Tylenol PM 500-25mg] Magnesium Oxide [Mag-Ox] 250 mg PO DAILY 12/01/18 08/17/19 History Vitamin B Complex 1 cap PO DAILY 12/01/18 08/17/19 History Wheat Dextrin [Benefiber] 2 tsp PO BID 12/01/18 08/17/19 History Atorvastatin [Lipitor] 10 mg PO HS 08/13/19 08/17/19 History Cholecalciferol [Vitamin D3 (25 5,000 unit PO HS 08/13/19 08/17/19 History Mcg = 1000 Iu)] Fish Oil/Dha/Epa [Fish Oil 1,200 1 each PO DAILY 08/13/19 08/17/19 History mg Fish Oil] Fluticasone Nasal Kinzers [Flonase 1 spray EA NOSTRIL HS 08/13/19 08/17/19 History Nasal Kinzers] Hydrochlorothiazide [Hydrodiuril] 25 mg PO DAILY 08/13/19 08/17/19 History Metoprolol Succinate (ER) [Toprol 25 mg PO HS 08/13/19 08/17/19 History Xl] Polyethylene Glycol 3350 [Miralax] 17 gm PO DAILY 08/13/19 08/17/19 History Allergies Allergy/AdvReac Type Severity Reaction Status Date / Time No Known Allergies Allergy Verified 08/17/19 07:12 Surgical - Exam Vital Signs Temp Pulse Resp BP Pulse Ox 97.4 F L 91 17 111/72 93 L 08/17/19 07:26 08/17/19 07:26 08/17/19 07:26 08/17/19 07:26 08/17/19 07:26 - General well developed, well nourished, no distress - Eyes PERRL - ENT normal pinna - Neck no masses - Respiratory normal expansion - Cardiovascular Rhythm: regular - Abdomen Abdomen: soft, non tender Assessment and Plan Assessment: We'll perform screening colonoscopy
--- NOTE | 2019-08-17 08:13 | P.OP ---
Date of Procedure: 08/17/19 Preoperative Diagnosis: Screening colonoscopy Postoperative Diagnosis: Diverticulosis Procedure(s) Performed: Colonoscopy Anesthesia: MAC Surgeon: Kang Ryan Pathology: none sent Condition: stable Disposition: PACU Description of Procedure: PROCEDURE: The patient was placed on the endoscopy table in the lateral position. Digital rectal examination was performed which revealed no abnormalities. The prostate was symmetric without nodules. Flexible colonoscope was then placed in the patient's anus and passed throughout the entire colon. The ileocecal valve was visualized. The cecum, ascending, transverse, dcolon were normal. in the descending; there is moderate diverticular changes. There is known to diverticulitis. Scope was then brought back the rectum this appeared normal. Scope withdrawn for patient.
[2019-08-17 08:57] VITALS: BP 111/75; PULSE 95; RESP 18
== END 2019-08-17 09:04 | disposition home or self-care (01) ==
LOC: ORWHC2ENDO 06:44
PROVIDERS: ATTEND Surgery
DX: Z12.11 Encounter for screening for malignant neoplasm of colon (principal); K57.30 Diverticulosis of large intestine without perforation or abscess without bleeding; Z86.010 Personal history of colon polyps; K21.9 Gastro-esophageal reflux disease without esophagitis; E78.5 Hyperlipidemia, unspecified; I10 Essential (primary) hypertension; M19.90 Unspecified osteoarthritis, unspecified site; N40.0 Benign prostatic hyperplasia without lower urinary tract symptoms; E03.9 Hypothyroidism, unspecified; R73.03 Prediabetes; Z91.048 Other nonmedicinal substance allergy status; K59.09 Other constipation; Z98.52 Vasectomy status; Z82.49 Family history of ischemic heart disease and other diseases of the circulatory system; Z82.5 Family history of asthma and other chronic lower respiratory diseases; Z79.82 Long term (current) use of aspirin; Z79.890 Hormone replacement therapy; Z79.899 Other long term (current) drug therapy
CPT/HCPCS: G0105; J2370; J2704